=== PATIENT | male | born 1950 | race Caucasian/White ===

== ENCOUNTER 2016-12-23 22:53 | Emergency (ER) | payer MEDICARE, OTHER ==
[2016-12-23] MEDS ORDERED: Amoxicillin/Clavulanate K 875-125 MG Tab PO ONE (23:44)
--- NOTE | 2016-12-25 11:03 | ER ---
DATE SEEN: 12/23/2016 TIME SEEN: 2310 hours. HISTORY OF PRESENT ILLNESS: This 66-year-old smoker with hypertension, depression, and atrial fibrillation presents with onset of bleeding this evening approximately an hour ago in the left naris. He is not on anticoagulation. He takes an aspirin 81 mg daily. No diabetes, heart disease, bleeding disorder, asthma. He does have COPD. ADDITIONAL COMMENT: The patient had a previous CVA. PAST SURGICAL HISTORY: Right shoulder surgery. REVIEW OF SYSTEMS: Negative except for the noted nasal bleed. Denies fever, denies previous nasal fractures or nasal bleeds. PHYSICAL EXAMINATION: VITAL SIGNS: Blood pressure 146/130. Blood pressure repeat after Rapid Rhino in place 161/95, mean arterial pressure of 108. Oxygen saturation 94% and heart rate 87. The patient has on inspection, septal increased capillary bleed. No small arterial bleeding. The bleeding seemed to have stopped except for just a slight ooze. There is increased capillary to the right naris also. No bleed in the right naris. NECK: No bruits. HEART: S1, S2. S2 is greater than S1. No murmur. LUNGS: Clear to auscultation except for occasional rales at posterior bases, bilateral. Radial and ulnar pulses intact. Capillary refill intact. Clubbing noted in his fingers. ABDOMEN: Nontender. No guarding. No abdominal discomfort. Left naris bleed. The patient had a Rapid rhino placed 7.5 cm. The patient advised to keep this in. DIAGNOSES: 1. Left naris epistaxis, septal bleed. 2. Smoker. 3. Status post previous cerebrovascular accident. 4. Hypertension. 5. Aspirin therapy. PLAN: The patient to use Tylenol. Continue with baby aspirin daily. The nasal Rapid Rhino to be taken out in 3 days. Avoid sneezing. If markedly worse, return earlier. Augmentin 875 mg one b.i.d. 10 days. Use probiotic/yogurt on a daily basis, start taking tonight. /[id number] RHYS/DANNAL
== END 2016-12-24 00:01 | disposition home or self-care (01) ==
LOC: FB.ED 22:53
DX: R04.0 Epistaxis (principal); I10 Essential (primary) hypertension; F32.9 Major depressive disorder, single episode, unspecified; I48.91 Unspecified atrial fibrillation; J44.9 Chronic obstructive pulmonary disease, unspecified; F17.200 Nicotine dependence, unspecified, uncomplicated; Z86.73 Personal history of transient ischemic attack (TIA), and cerebral infarction without residual deficits; Z79.82 Long term (current) use of aspirin
CPT/HCPCS: 30903; 99282; A9270; 30901

== ENCOUNTER 2017-07-23 01:15 | Emergency (ER) | payer MEDICARE, OTHER ==
--- NOTE | 2017-07-23 02:05 | EDM.PDOC ---
ED HPI GENERAL MEDICAL PROBLEM - General Chief Complaint: Genitourinary Problem Stated Complaint: enlarged, painless R testicle Time Seen by Provider: 07/23/17 01:40 Source of Information: Reports: Patient, Old Records, RN History Limitations: Reports: No Limitations - History of Present Illness INITIAL COMMENTS - FREE TEXT/NARRATIVE: 66 yo male here with onset he says this past Saturday of R testicular swelling that he says developed with lifting of a 70# sack. There was no pain associated with this. He has been voiding normally and his bowels have functioned normally. He has not yet attempted to seek medical care for this until [facility]. What prompted him to come to the ER tonight was that he awake from sleep and noted that the unilateral swelling had further worsened, still without pain. Onset: Sudden Onset Date: 07/20/17 Duration: Day(s): Location: Reports: Pelvis (R testicle.) Quality: Reports: Other (painless) Improves with: Reports: None Worsens with: Reports: Other (time) Context: Reports: Other (onset reportedly with lifting this past Saturday.) Associated Symptoms: Reports: No Other Symptoms Treatments INFORMATICS PHARMACIST: Reports: Other (see below) (none) - Related Data Allergies Allergy/AdvReac Type Severity Reaction Status Date / Time No Known Allergies Allergy Verified 07/23/17 01:30 Home Meds: Home Meds Ascorbic Acid 1 tab PO DAILY 12/23/16 [History] Aspirin [Ecotrin] 2 tab PO DAILY 12/23/16 [History] Cholecalciferol (Vitamin D3) [Vitamin D] 2.5 tab PO DAILY 12/23/16 [History] DULoxetine [Cymbalta] 1 cap PO BEDTIME 12/23/16 [History] DULoxetine [Cymbalta] 1 cap PO DAILY 12/23/16 [History] Digoxin [Lanoxin] 1 tab PO DAILY 12/23/16 [History] Hydrochlorothiazide/Lisinopril [Lisinopril-HCTZ 20-25 MG] 1 tab PO DAILY [History] Verapamil HCl [Verapamil Sr] 2 tab PO DAILY 12/23/16 [History] Past Medical History Cardiovascular History: Reports: Hypertension, Other (See Below) Other Cardiovascular History: irregular heart beat as per patient. 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 - Past Surgical History Musculoskeletal Surgical History: Reports: Other (See Below) Other Musculoskeletal Surgeries/Procedures:: Right shoulder fusion. Social & Family History - Family History Family Medical History: Noncontributory - Tobacco Use Smoking Status *Q: Current Every Day Smoker Years of Tobacco use: 46 Packs/Tins Daily: 0.5 - Caffeine Use Caffeine Use: Reports: Coffee, Soda - Alcohol Use Days Per Week of Alcohol Use: 1 Number of Drinks Per Day: 2 Total Drinks Per Week: 2 - Recreational Drug Use Recreational Drug Use: No ED ROS GENERAL - Review of Systems Review Of Systems: See Below Constitutional: Reports: No Symptoms Respiratory: Reports: No Symptoms GI/Abdominal: Reports: No Symptoms : Reports: Other (R testicular swelling) Musculoskeletal: Reports: No Symptoms Skin: Reports: No Symptoms ED EXAM, RENAL/ - Physical Exam Exam: See Below Exam Limited By: No Limitations General Appearance: Alert, WD/WN, No Apparent Distress Respiratory/Chest: No Respiratory Distress Cardiovascular: Regular Rate, Rhythm GI/Abdominal: Normal Bowel Sounds, Soft, Non-Tender, No Distention. No: Hernia (Male) Exam: No Hernia, Scrotal Swelling, Testicular Mass (entire R testicle is markedly larger in size than the contralateral testicle. Both testes are descended in the scrotum without retraction. No scrotal hernias noted. ). No: Inguinal Lymphadenopathy, Scrotum Tenderness (L), Scrotum Tenderness (R), Suprapubic Fullness Back Exam: Normal Inspection. No: CVA Tenderness (R), CVA Tenderness (L) Extremities: Normal Inspection, Normal Range of Motion, Non-Tender, No Pedal Edema Neurological: Alert, Oriented, CN II-XII Intact, Normal Cognition Psychiatric: Normal Affect, Normal Mood Skin Exam: Warm, Dry, Intact, Normal Color, No Rash Lymphatic: No Adenopathy Course - Vital Signs Last Recorded V/S: Last Vital Signs Temp 36.3 C 07/23/17 01:28 Pulse 76 07/23/17 01:28 Resp 17 07/23/17 01:28 BP 106/69 07/23/17 01:28 Pulse Ox 98 07/23/17 01:28 Departure - Departure Time of Disposition: 02:08 Disposition: Home, Self-Care 01 Condition: Fair Clinical Impression: Hydrocele of testis - Discharge Information Referrals: Alec Godoy MD [Primary Care Provider] - Forms: ED Department Discharge Additional Instructions: Follow up as soon as possible with urology regarding your painless R testicular enlargement.
== END 2017-07-23 02:12 | disposition home or self-care (01) ==
LOC: FB.ED 01:15
DX: N43.3 Hydrocele, unspecified (principal); I10 Essential (primary) hypertension; F17.210 Nicotine dependence, cigarettes, uncomplicated; Z79.82 Long term (current) use of aspirin; Z79.899 Other long term (current) drug therapy
CPT/HCPCS: 99283

== ENCOUNTER 2018-05-01 11:40 | Inpatient (IN) | payer MEDICARE ==
[2018-05-01] MEDS ORDERED: Furosemide 40 MG/4 ML VIAL IVPUSH ONE ×2 (13:04→19:25)
[2018-05-01] MEDS ORDERED: Sodium Chloride 0.9% 10 ML Syringe FLUSH PRN (13:04)
[2018-05-01] MEDS ORDERED: Iopamidol 755 Mg/ML 75 ML Bottle IV ONE (13:24)
[2018-05-01] MEDS ORDERED: Pneumococcal Polyvalent-23 Vaccine 0.5 ML SDV IM ONE (13:37)
[2018-05-01] MEDS: Enoxaparin 40 MG/0.4 ML Syringe SUBCUT SCH (14:30)
[2018-05-01] MEDS: Nicotine 21 MG/24 Hr Patch TRDERM SCH (15:54)
--- NOTE | 2018-05-01 16:53 | PCM.CONS ---
H&P History of Present Illness - General Date of Service: 05/01/18 Admit Problem/Dx: Admission Diagnosis/Problem Admission Diagnosis/Problem Pleural effusion - History of Present Illness Initial Comments - Free Text/Narative: Pt admitted with a left sided pleural effusion and shortness of breath. This has been been a chronic issue for him over the past month. Seen in clinic 2 days ago and again today where he was admitted. He has a hx of chf as well as marked wt gain as well. He apparently had an effusion drained on that side in July of last year. This was thought to have been secondary to rib fractures. He denies any current chest discomfort with breathing. His last O2 sat was 96 % on room air. - Related Data Allergies/Adverse Reactions: Allergies Allergy/AdvReac Type Severity Reaction Status Date / Time No Known Allergies Allergy Verified 05/01/18 14:03 Home Medications: Home Meds DULoxetine [Cymbalta] 30 mg PO DAILY 12/23/16 [History] Aspirin [Halfprin] 81 mg PO DAILY 05/01/18 [History] Digoxin [Digox] 125 mcg PO DAILY 05/01/18 [History] Furosemide 40 mg PO 08,14 05/01/18 [History] Levofloxacin [Levaquin] 500 mg PO DAILY 05/01/18 [History] Lisinopril/Hydrochlorothiazide [Lisinopril-Hctz 20-25 mg Tab] 1 tab PO DAILY [History] Potassium Chloride 10 meq PO BIDMEALS 05/01/18 [History] Verapamil [Verapamil ER] 480 mg PO DAILY 05/01/18 [History] traZODone HCl [Trazodone HCl] 25 mg PO BEDTIME PRN 05/01/18 [History] Past Medical History HEENT History: Reports: Cataract Cardiovascular History: Reports: Heart Failure, Hypertension, Other (See Below) Other Cardiovascular History: irregular heart beat as per patient. 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 Psychiatric History: Reports: Depression Endocrine/Metabolic History: Reports: Obesity/BMI 30+ - Infectious Disease History Infectious Disease History: Reports: Rheumatic Fever - Past Surgical History Musculoskeletal Surgical History: Reports: Other (See Below) Other Musculoskeletal Surgeries/Procedures:: Right shoulder fusion with stimulator Social & Family History - Family History Family Medical History: Noncontributory - Tobacco Use Smoking Status *Q: Current Every Day Smoker Years of Tobacco use: 30 Packs/Tins Daily: 0.5 - Caffeine Use Caffeine Use: Reports: Coffee - Recreational Drug Use Recreational Drug Use: No H&P Review of Systems - Review of Systems: Review Of Systems: See Below General: Denies: Fever, Chills HEENT: Reports: No Symptoms Pulmonary: Reports: Shortness of Breath. Denies: Pleuritic Chest Pain Cardiovascular: Reports: Edema Skin: Reports: No Symptoms Exam - Exam Exam: See Below - Vital Signs Vital Signs: Last Vital Signs Temp 97.6 F 05/01/18 15:50 Pulse 70 05/01/18 15:50 Resp 18 05/01/18 15:50 BP 116/79 05/01/18 15:50 Pulse Ox 96 05/01/18 15:50 Weight: 113.897 kg - Exam Quality Assessment: No: Supplemental Oxygen General: Alert, Oriented, Cooperative, Other (sleeping when entered the room breathign did not appear to be labored. ) Lungs: Clear to Auscultation, Decreased Breath Sounds Cardiovascular: Irregular Rhythm Extremities: Pedal Edema - Patient Data Lab Results Last 24 hrs: Laboratory Results - last 24 hr 05/01/18 05/01/18 05/01/18 Range/Units 13:44 13:44 13:44 WBC 8.3 (4.5-12.0) X10-3/uL RBC 4.87 (4.30-5.75) x10(6)uL Hgb 14.1 (11.5-15.5) g/dL Hct 44.1 (30.0-51.3) % MCV 90.6 (80-96) fL MCH 29.0 (27.7-33.6) pg MCHC 32.0 L (32.2-35.4) g/dL RDW 15.4 (11.5-15.5) % Plt Count 235 (125-369) X10(3)uL MPV 8.1 (7.4-10.4) fL Neut % (Auto) 72.5 (46-82) % Lymph % (Auto) 15.5 (13-37) % [place] % (Auto) 10.5 (4-12) % Eos % (Auto) 1 (1.0-5.0) % Baso % (Auto) 0 (0-2) % Neut # (Auto) 6.0 (1.6-8.3) # Lymph # (Auto) 1.3 (0.6-5.0) # [place] # (Auto) 0.9 (0.0-1.3) # Eos # (Auto) 0.1 (0.0-0.8) # Baso # (Auto) 0.0 (0.0-0.2) # Sodium 141 (135-145) mmol/L Potassium 3.4 L (3.5-5.3) mmol/L Chloride 102 (100-110) mmol/L Carbon Dioxide 31 (21-32) mmol/L BUN 18 (7-18) mg/dL Creatinine 1.5 H (0.70-1.30) mg/dL Est Cr Clr Drug Dosing 53.17 mL/min Estimated GFR (MDRD) 47 L (>60) BUN/Creatinine Ratio 12.0 (9-20) Glucose 98 (80-116) mg/dL Calcium 9.7 (8.6-10.2) mg/dL Total Bilirubin 1.6 H (0.1-1.3) mg/dL AST 25 (5-25) IU/L ALT 24 (12-36) U/L Alkaline Phosphatase 113 H (56-112) IU/L Troponin I < 0.017 L (<0.017-0.056) ng/mL Total Protein 6.9 (6.0-8.0) g/dL Albumin 3.0 L (3.2-4.6) g/dL Globulin 3.9 g/dL Albumin/Globulin Ratio 0.8 Result Diagrams: 05/01/18 13:44 05/01/18 13:44 Imaging Impressions Last 24 hrs: left sided pleural effusion. Consult PN Assessment/Plan Procedures: Procedures CONTROL OF NOSEBLEED (12/23/16) EMERGENCY DEPT VISIT (07/23/17) EMERGENCY DEPT VISIT (12/23/16) (1) Pleural effusion on left SNOMED Code(s): 34944135 Code(s): J90 - PLEURAL EFFUSION, NOT ELSEWHERE CLASSIFIED Current Visit: Yes Problem List Initiated/Reviewed/Updated: Yes My Orders Last 24 Hours: thoracentesis may be of benefit. will set up for tomorrow to be done with US guidance at about 0930. procedure and risks explained to the patient to include bleeding, infection, injury to the lung. he expressed understanding and asks us to proceed.
[2018-05-01] MEDS ORDERED: traZODone 50 MG Tab PO PRN (19:36)
--- NOTE | 2018-05-02 09:10 | CT ---
INDICATION: Pleural effusion etiology, one half pack per day times 40 years of smoking, short of breath and cough. CT CHEST WITH CONTRAST: Spiral 3.75 mm axial sections were obtained through the chest with 75 mL Isovue 370 at 2 mL/second, with sagittal and coronal reconstructions, 05/01/18, and compared with chest x-ray dated 04/30/18. Total exam DLP = 950.93 mGy-cm. A small amount of fluid appears to be present along the subdiaphragmatic area, dome of the liver laterally and posteriorly, etiology indeterminate. No specific liver abnormality was identified, except for what appears to be a benign cystic structure in the right lobe, seen on axial image #69. Arterial calcifications are noted at the bryce hepatis, superior mesenteric artery, and aorta, as well as at the origins of the renal arteries. Probable cyst off the mid pole anteriorly of the left kidney is noted of less than 3 cm. At the left lower lung field, extending into the upper lung field posterolaterally, there is a loculated pleural effusion with adjacent pleural thickening along the contour of the lung and also the contour of the hemithorax. The calcified pleural thickening is likely on the basis of asbestosis, although other etiology cannot be excluded. There is an area of relative thickening towards the base of the lung, which is somewhat suspicious for a process such as mesothelioma. This should be correlated clinically. Diagnostic thoracentesis on the left is recommended for further evaluation of this finding. A minimal pleural effusion is also noted on the right without a definite active infiltrate. Pericardial effusion is noted. No cardiomegaly was seen. Coronary artery calcifications are fairly extensive. Lymphadenopathy is noted in the mediastinum with one particularly abnormal lymph node noted just above the david anteriorly, measuring approximately 25 mm. Malignancy would be a consideration with this appearance. There is also calcification noted in the arch of the aorta and brachiocephalic vessels. IMPRESSION: 1. Large loculated pleural effusion on the left. Diagnostic thoracentesis is recommended for further evaluation, as mesothelioma cannot be excluded with what appears to be thickened pleura with calcification, raising question of asbestosis. 2. Pericardial effusion of small size vs thickening. 3. ASHD/ASD. 4. Small right pleural effusion. 5. Small amount of fluid suggested along the border of the diaphragm and the dome of the liver posterolaterally. 6. Small probable cysts of benign origin right lobe of the liver and left kidney. Report was called to Dr. Godoy at 1555 hours on 05/01/18. [facility]
--- NOTE | 2018-05-02 10:12 | PCM.OPNOTE ---
- General Post-Op/Procedure Note Date of Surgery/Procedure: 05/02/18 Operative Procedure(s): left sided thoracentesis Findings: 1200 ml of bloody fluid obtained Pre Op Diagnosis: left sided plueral effusion Post-Op Diagnosis: Same Anesthesia Technique: Local Primary Surgeon: Armando Soto Complications: None Condition: Good Free Text/Narrative:: Intake & Output 05/01/18 05/02/18 05/02/18 22:59 06:59 14:59 Intake Total 580 200 Output Total 2104 1693 Balance -1243 -7209 see dictation
[2018-05-02] MEDS ORDERED: Verapamil 240 MG Tab.ER PO ONE (10:20)
[2018-05-02] MEDS: Potassium Chloride 10 MEQ Tab.ER PO SCH ×2 (10:25→17:31)
[2018-05-02] MEDS: Hydrochlorothiazide/Lisinopril 25-20 MG Tab PO SCH (10:26)
[2018-05-02] MEDS: Digoxin 125 MCG Tab PO SCH (10:26)
[2018-05-02] MEDS: DULoxetine 30 MG Cap PO SCH (10:26)
[2018-05-02] MEDS: Aspirin 81 MG Tab.EC PO SCH (10:26)
--- NOTE | 2018-05-02 10:26 | PCM.SN ---
- Free Text/Narrative Note: Post procedure cxr: Lung is expanded. There is still some fluid in the base. Atelectasis is noted. recommend IS to help expand the lung.
[2018-05-02] MEDS: Verapamil 240 MG Tab.ER PO SCH ×2 (10:28→16:15)
--- NOTE | 2018-05-02 10:55 | OR ---
DATE OF OPERATION: 05/02/2018 SURGEON: Armando Soto MD PROCEDURE PERFORMED: Left-sided thoracentesis. PREOPERATIVE DIAGNOSIS: Left-sided pleural effusion. POSTOPERATIVE DIAGNOSIS: Left-sided pleural effusion. INDICATIONS FOR PROCEDURE: This is a 67-year-old white male who was admitted yesterday with what appeared to be an exacerbation of congestive heart failure including shortness of breath. He had a history of a traumatic effusion that was drained several small months ago. On chest x-ray, he was noted to have a left-sided pleural effusion that had returned and was appeared to be identical to the fluid that had been drained before. Thoracentesis was requested, offered, and accepted by the patient. DESCRIPTION OF OPERATION: After ultrasound was used to demonstrate the ideal position of the loculated fluid, the patient was prepped and draped in usual sterile manner. A grand total of 4 mL of 1% lidocaine was used to infiltrate our track. A stab incision was then made through the skin which was approximately 3 cm lateral to the posterior axillary line. Using the C-Trak pattern, the thoracentesis catheter and introducer needle were then introduced into the pleural cavity, and on aspiration of the bloody fluid, the catheter was advanced, and then introducer was withdrawn. Grand total of approximately 1200 mL of bloody fluid was obtained. This was not sent for pathologic examination. The patient noted some coughing towards the end of the procedure. The catheter then was removed, and a Band-Aid was applied. The patient tolerated the procedure well. Postoperative chest x-ray was obtained. /[id number] SILVINA/SHAKIRA
--- NOTE | 2018-05-02 12:00 | CR ---
INDICATION: Post thoracentesis. CHEST: An AP upright portable view of the chest was obtained post thoracentesis , 1,200 mL of fluid removed from the left chest, and revealed some residual pleural thickening at the lung base and laterally on the left. There is some parenchymal change, which may represent subsegmental atelectasis. The heart appeared enlarged. The aorta was tortuous with calcification in the arch. Right lung and pleural space were unremarkable. IMPRESSION: No evidence of post thoracentesis complication is identified on the left. MTDD
--- NOTE | 2018-05-02 12:59 | PN ---
DATE SEEN: 05/02/2018 SUBJECTIVE: Lester Mayfield is a 67-year-old male, admitted with left large pleural effusion. 1200 mL removed today by Dr. Soot. Feeling better. Post thoracentesis x-ray stable. Weight is down markedly. Echocardiogram has been performed, outcome uncertain. PHYSICAL EXAMINATION: VITAL SIGNS: Stable. NECK: Benign. Thyroid small. CHEST: Better air exchange, left lung field. HEART: Occasional ectopy. ABDOMEN: Benign. ASSESSMENT: Large pleural effusion, origin uncertain, may be heart failure otherwise. PLAN: Medications, care and treatment appropriate, intervention and treatment plan. /[id number] MIRYAM/SHAKIRA
--- NOTE | 2018-05-02 13:48 | HP ---
ADMISSION DATE: 05/01/2018 HISTORY OF PRESENT ILLNESS: Alfredito Lassiter is a 67-year-old male, who is admitted to [facility] through [place] [facility]. Complicated shortness of breath, increasing weight, history of congestive heart failure, and compounding issue of a large left pleural effusion. Clinical concerns raised, was admitted to the hospital, placed on IV fluids, intervention and care. Thoracentesis is planned with consultation with Dr. Soto. MEDICATIONS: Present daily medications include: 1. Furosemide 40 mg b.i.d. 2. Levofloxacin. 3. Aspirin. 4. Digoxin 0.125 one p.o. daily atrial fibrillation. 5. Cymbalta 30 mg one p.o. daily. 6. Lisinopril-hydrochlorothiazide 20/12.5. 7. Potassium 10 mEq daily. 8. Trazodone 50 at bedtime. 9. Verapamil XL 240 one p.o. daily. ALLERGIES: No known medication, environmental, or latex allergies. PAST MEDICAL HISTORY: Significant for previous right orchiectomy, right shoulder rotator cuff surgery, right elbow surgery. Chronic illnesses include hypertension, congestive heart failure, atrial fibrillation, and insomnia. SOCIAL HISTORY: Lives alone, partner on board. Long-term smoker. No alcohol consumption. No illicit drug use. FAMILY HISTORY: Noncontributory. REVIEW OF SYSTEMS: CONSTITUTIONAL: Feeling punk. EYES: Sees well. EARS: Difficulty in crowds. OROPHARYNX: Intact dentition. RESPIRATORY: Marked shortness of breath. CARDIOVASCULAR: Shortness of breath, but no chest pain. GI: Regular predictable stools. : Voiding pattern okay. Nocturia x1. ORTHOPEDIC: Generalized joint complaints. PHYSICAL EXAMINATION: VITAL SIGNS: Stable. 109.8 kg, 124/88, O2 saturation 93%, 126/50. GENERAL: Appears comfortable. Gives a good history. HEENT: Reveal funduscopic benign. Bright TMs. Clear nasal discharge. Mouth and oropharynx clear. NECK: Benign. CHEST: Clear in all lung tomlin. No adventitious sounds. HEART: Ectopy present, no significant murmur. ABDOMEN: Benign. : Absent right testicle, surgical scar well healed. Left testicle unremarkable. Uncircumcised. No hernias. RECTAL: Declined. EXTREMITIES: Well perfused. NEUROMUSCULAR: Intact. LABORATORY STUDIES: White count 8300, hemoglobin 14.1, normal. Chemistry: Potassium 3.4, creatinine 1.5, markedly elevated BMP. TSH 1.89. ASSESSMENT: Left pleural effusion, origin undetermined. PLAN: Thoracentesis planned for today, complementary care and well being. /[id number] MIRYAM/SHAKIRA
[2018-05-02] MEDS: Enoxaparin 40 MG/0.4 ML Syringe SUBCUT SCH (14:52)
[2018-05-02] MEDS: Nicotine 21 MG/24 Hr Patch TRDERM SCH (15:53)
[2018-05-03] MEDS: Potassium Chloride 10 MEQ Tab.ER PO SCH (08:39)
[2018-05-03] MEDS: Aspirin 81 MG Tab.EC PO SCH (08:39)
[2018-05-03] MEDS: DULoxetine 30 MG Cap PO SCH (08:39)
[2018-05-03] MEDS: Hydrochlorothiazide/Lisinopril 25-20 MG Tab PO SCH (08:40)
[2018-05-03] MEDS: Digoxin 125 MCG Tab PO SCH (08:40)
[2018-05-03] MEDS ORDERED: Verapamil 240 MG Cap.ER PO SCH (09:00)
[2018-05-03] MEDS ORDERED: Verapamil 120 MG Tab.ER PO SCH (09:00)
--- NOTE | 2018-05-05 08:24 | DISCH ---
DISCHARGE DATE: 05/03/2018 DISCHARGE DIAGNOSIS: Left pleural effusion, symptomatic. HOSPITAL COURSE: Lester Mayfield is a 67-year-old male, admitted to [facility]. Presented with shortness of breath, complicated cough, was found to have a large pleural effusion and congestive heart failure, of concern. DIAGNOSTIC STUDIES: Chest x-ray revealed a large pleural effusion. CBC unremarkable x2. Electrolytes were stable. Potassium 3.4 x2. Creatinine 1.5. GFR of 47, 43. BNP 3,170. Medications were reviewed. Was seen in consultation by Dr. Soto, thoracentesis revealed 1200 mL of nonbloody material. No chemical evaluation was performed. [place] better. Ambulation, shortness of breath, and breathing were improved. Origin of clinical concern. Echocardiogram performed, results not available. The patient was discharged home. Follow up in one week's time with Dr. Payne. Close observation of weight, intervention, care and treatment, proceed accordingly. DISCHARGE PHYSICAL EXAMINATION: VITAL SIGNS: 109.225 kg, pulse 77, 118/75, and 97%. GENERAL: Appears comfortable. HEENT: Conjunctivae clear. Bright tympanic membranes. Clear nasal discharge. Mouth and oropharynx clear. NECK: Benign. CHEST: Better air exchange throughout all lung tomlin, particularly left side. HEART: Distant heart sounds. Occasional ectopy. No significant murmur. ABDOMEN: Rotund. EXTREMITIES: Perfused. Minimal edema. 30-minute discharge, treatment plan and care. /[id number] /SHAKIRA
== END 2018-05-03 11:50 | disposition home or self-care (01) | DRG 188 ==
LOC: FB.MS 11:44
PROVIDERS: ADMIT Family Medicine; ATTEND Family Medicine
PROC: 0W9B3ZZ Drainage of Left Pleural Cavity, Percutaneous Approach (ICD-10-PCS; principal; 2018-05-02)
DX: J90 Pleural effusion, not elsewhere classified (principal); I11.0 Hypertensive heart disease with heart failure; I50.9 Heart failure, unspecified; I48.91 Unspecified atrial fibrillation; F17.210 Nicotine dependence, cigarettes, uncomplicated; G47.00 Insomnia, unspecified; F32.9 Major depressive disorder, single episode, unspecified; Z86.73 Personal history of transient ischemic attack (TIA), and cerebral infarction without residual deficits; Z98.1 Arthrodesis status; Z90.79 Acquired absence of other genital organ(s)
CPT/HCPCS: 36415; 71045; 71260; 80048; 80053; 83880; 84443; 84484; 85025; 93005; 93306; 94150; A9270-GY; J1650; J1940; Q9967

== ENCOUNTER 2018-06-13 10:22 | Emergency (ER) | payer MEDICARE ==
--- NOTE | 2018-06-13 10:34 | EDM.PDOC ---
ED HPI GENERAL MEDICAL PROBLEM - General Chief Complaint: Cardiovascular Problem Stated Complaint: DIZZY Time Seen by Provider: 06/13/18 10:22 Source of Information: Reports: Patient, Family History Limitations: Reports: Altered Mental Status (lethgargic) - History of Present Illness INITIAL COMMENTS - FREE TEXT/NARRATIVE: 67 y.o.w.m came to the ED with his GF, unable to ambulate because of weakness, Pt is extremely tired this am. Pt was doing fine yesterday, was doing garden work.. Pt is too week to ambulate, denies chest pain. No Trauma, No N/V/D or any other acute med issues. BP 155/103 Pulse ox 93% on RA RR 20 pulse 93 Temp 36.9 Onset Date: 06/13/18 Onset Time: 07:00 Duration: Hour(s): Location: Reports: Generalized (unable to walk) Quality: Reports: Other (denies pain) Severity: Moderate Improves with: Reports: Rest Worsens with: Reports: Movement Context: Reports: Other Associated Symptoms: Reports: Confusion, Weakness - Related Data Allergies Allergy/AdvReac Type Severity Reaction Status Date / Time No Known Allergies Allergy Verified 06/13/18 10:26 Home Meds: Home Meds . [Unable to Verify Home Med List] 06/13/18 [History] Past Medical History HEENT History: Reports: Cataract Cardiovascular History: Reports: Heart Failure, Hypertension, Other (See Below) Other Cardiovascular History: irregular heart beat as per patient. 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 Psychiatric History: Reports: Depression Endocrine/Metabolic History: Reports: Obesity/BMI 30+ - Infectious Disease History Infectious Disease History: Reports: Rheumatic Fever - Past Surgical History Musculoskeletal Surgical History: Reports: Other (See Below) Other Musculoskeletal Surgeries/Procedures:: Right shoulder fusion with stimulator Social & Family History - Family History Family Medical History: Noncontributory - Tobacco Use Smoking Status *Q: Current Every Day Smoker Years of Tobacco use: 50 Packs/Tins Daily: 0.5 - Caffeine Use Caffeine Use: Reports: Coffee, Soda - Recreational Drug Use Recreational Drug Use: No ED ROS GENERAL - Review of Systems Review Of Systems: Unable To Obtain (due to lethargy) ED EXAM, GENERAL - Physical Exam Exam: See Below Exam Limited By: Altered Mental Status General Appearance: Alert, WD/WN, Mild Distress Eye Exam: Bilateral Eye: Normal Inspection Ears: Normal External Exam Ear Exam: Bilateral Ear: Auricle Normal Nose: Normal Inspection, Normal Mucosa, No Blood Throat/Mouth: Normal Inspection, Normal Lips Head: Atraumatic, Normocephalic Neck: Normal Inspection, Supple, Non-Tender, Full Range of Motion Respiratory/Chest: No Respiratory Distress, Lungs Clear, Normal Breath Sounds Cardiovascular: Normal Peripheral Pulses, Regular Rate, Rhythm, No Edema, No Gallop, No JVD, No Murmur, No Rub GI/Abdominal: Normal Bowel Sounds, Soft, Non-Tender, No Organomegaly, No Distention, No Abnormal Bruit, No Mass, Pelvis Stable (Male) Exam: Deferred Rectal (Males) Exam: Deferred Back Exam: Normal Inspection, Full Range of Motion Extremities: Normal Inspection, Normal Range of Motion, Non-Tender, No Pedal Edema, Normal Capillary Refill Psychiatric: Depressed Mood Skin Exam: Warm, Dry, Intact, Normal Color, No Rash Lymphatic: No Adenopathy EKG INTERPRETATION EKG Date: 06/13/18 Time: 10:55 Rhythm: NSR Rate (Beats/Min): 87 [place]: RAD-Right [place] Deviation P-Wave: Present QRS: Normal ST-T: Normal QT: Prolonged Comparison: NA - No Prior EKG Course - Vital Signs Text/Narrative:: 67 y.o.w.m came to the ED with his GF, unable to ambulate because of weakness, Pt is extremely tired this am. Pt was doing fine yesterday, was doing garden work.. Pt is too week to ambulate, denies chest pain. No Trauma, No N/V/D or any other acute med issues. BP 155/103 Pulse ox 93% on RA RR 20 pulse 93 Temp 36.9 PE: WN W M lethargic, too weak to ambulate Imaging: CT Head: NAD as per RAD CXR: Labs: CBC, BMP Nl exept Troponin: 0.08 second Troponin: 0.101 Impression: NSTEMI, Lethargy cardiac risk factor: Smoker Tx: ASA, Heparin drip with bolus 11.45 Consultation: Dr. Godoy, Hospitalist: Send to [facility] 12.44 pm Consultation: Dr. Garrett, Hospitalist, [facility]: Accepted the pt for transfer Reexam: Pt inprogved, was ambulating fine in the ED Plan: Transfer to [facility], Family agree Last Recorded V/S: Last Vital Signs Temp 36.5 C 06/13/18 13:33 Pulse 78 06/13/18 13:33 Resp 18 06/13/18 10:40 BP 132/101 H 06/13/18 13:33 Pulse Ox 100 06/13/18 13:33 - Orders/Labs/Meds Labs: Laboratory Tests 06/13/18 06/13/18 06/13/18 Range/Units 10:50 10:50 10:50 WBC 7.9 (4.5-12.0) X10-3/uL RBC 5.24 (4.30-5.75) x10(6)uL Hgb 15.5 (13.5-17.8) g/dL Hct 46.7 (30.0-51.3) % MCV 89.2 (80-96) fL MCH 29.5 (27.7-33.6) pg MCHC 33.1 (32.2-35.4) g/dL RDW 13.7 (11.5-15.5) % Plt Count 261 (125-369) X10(3)uL MPV 7.3 L (7.4-10.4) fL Neut % (Auto) 76.7 (46-82) % Lymph % (Auto) 13.2 (13-37) % [place]ake % (Auto) 7.9 (4-12) % Eos % (Auto) 2 (1.0-5.0) % Baso % (Auto) 1 (0-2) % Neut # (Auto) 6.2 (1.6-8.3) # Lymph # (Auto) 1.0 (0.6-5.0) # Leake # (Auto) 0.6 (0.0-1.3) # Eos # (Auto) 0.1 (0.0-0.8) # Baso # (Auto) 0.0 (0.0-0.2) # PT 10.6 (8.7-11.1) INR 1.09 (0.89-1.13) Sodium 138 (135-145) mmol/L Potassium 3.8 (3.5-5.3) mmol/L Chloride 102 (100-110) mmol/L Carbon Dioxide 27 (21-32) mmol/L BUN 16 (7-18) mg/dL Creatinine 1.2 (0.70-1.30) mg/dL Est Cr Clr Drug Dosing 68.43 mL/min Estimated GFR (MDRD) > 60 (>60) BUN/Creatinine Ratio 13.3 (9-20) Glucose 112 (80-116) mg/dL Lactic Acid (0.4-2.2) mmol/L Calcium 8.6 (8.6-10.2) mg/dL Magnesium (1.8-2.5) mg/dL Troponin I (<0.017-0.056) ng/mL Urine Color (YELLOW) Urine Appearance (CLEAR) Urine pH (5.0-6.5) Ur Specific [place] (1.010-1.025) Urine Protein (NEGATIVE) mg/dL Urine Glucose (UA) (NORMAL) mg/dL Urine Ketones (NEGATIVE) mg/dL Urine Occult Blood (NEGATIVE) Urine Nitrite (NEGATIVE) Urine Bilirubin (NEGATIVE) Urine Urobilinogen (NEGATIVE) mg/dL Ur Leukocyte Esterase (NEGATIVE) Urine RBC (0-5) Urine WBC (0-5) Ur Squamous Epith Cells (NS,R,O) Urine Bacteria (NS) 06/13/18 06/13/18 06/13/18 Range/Units 10:50 10:50 10:50 WBC (4.5-12.0) X10-3/uL RBC (4.30-5.75) x10(6)uL Hgb (13.5-17.8) g/dL Hct (30.0-51.3) % MCV (80-96) fL MCH (27.7-33.6) pg MCHC (32.2-35.4) g/dL RDW (11.5-15.5) % Plt Count (125-369) X10(3)uL MPV (7.4-10.4) fL Neut % (Auto) (46-82) % Lymph % (Auto) (13-37) % [place]ake % (Auto) (4-12) % Eos % (Auto) (1.0-5.0) % Baso % (Auto) (0-2) % Neut # (Auto) (1.6-8.3) # Lymph # (Auto) (0.6-5.0) # Leake # (Auto) (0.0-1.3) # Eos # (Auto) (0.0-0.8) # Baso # (Auto) (0.0-0.2) # PT (8.7-11.1) INR (0.89-1.13) Sodium (135-145) mmol/L Potassium (3.5-5.3) mmol/L Chloride (100-110) mmol/L Carbon Dioxide (21-32) mmol/L BUN (7-18) mg/dL Creatinine (0.70-1.30) mg/dL Est Cr Clr Drug Dosing mL/min Estimated GFR (MDRD) (>60) BUN/Creatinine Ratio (9-20) Glucose (80-116) mg/dL Lactic Acid 1.3 (0.4-2.2) mmol/L Calcium (8.6-10.2) mg/dL Magnesium 1.8 (1.8-2.5) mg/dL Troponin I 0.087 H* (<0.017-0.056) ng/mL Urine Color (YELLOW) Urine Appearance (CLEAR) Urine pH (5.0-6.5) Ur Specific [place] (1.010-1.025) Urine Protein (NEGATIVE) mg/dL Urine Glucose (UA) (NORMAL) mg/dL Urine Ketones (NEGATIVE) mg/dL Urine Occult Blood (NEGATIVE) Urine Nitrite (NEGATIVE) Urine Bilirubin (NEGATIVE) Urine Urobilinogen (NEGATIVE) mg/dL Ur Leukocyte Esterase (NEGATIVE) Urine RBC (0-5) Urine WBC (0-5) Ur Squamous Epith Cells (NS,R,O) Urine Bacteria (NS) 06/13/18 06/13/18 Range/Units 11:45 12:54 WBC (4.5-12.0) X10-3/uL RBC (4.30-5.75) x10(6)uL Hgb (13.5-17.8) g/dL Hct (30.0-51.3) % MCV (80-96) fL MCH (27.7-33.6) pg MCHC (32.2-35.4) g/dL RDW (11.5-15.5) % Plt Count (125-369) X10(3)uL MPV (7.4-10.4) fL Neut % (Auto) (46-82) % Lymph % (Auto) (13-37) % [place] % (Auto) (4-12) % Eos % (Auto) (1.0-5.0) % Baso % (Auto) (0-2) % Neut # (Auto) (1.6-8.3) # Lymph # (Auto) (0.6-5.0) # [place]ake # (Auto) (0.0-1.3) # Eos # (Auto) (0.0-0.8) # Baso # (Auto) (0.0-0.2) # PT (8.7-11.1) INR (0.89-1.13) Sodium (135-145) mmol/L Potassium (3.5-5.3) mmol/L Chloride (100-110) mmol/L Carbon Dioxide (21-32) mmol/L BUN (7-18) mg/dL Creatinine (0.70-1.30) mg/dL Est Cr Clr Drug Dosing mL/min Estimated GFR (MDRD) (>60) BUN/Creatinine Ratio (9-20) Glucose (80-116) mg/dL Lactic Acid (0.4-2.2) mmol/L Calcium (8.6-10.2) mg/dL Magnesium (1.8-2.5) mg/dL Troponin I 0.101 H* (<0.017-0.056) ng/mL Urine Color Yellow (YELLOW) Urine Appearance Slightly cloudy (CLEAR) Urine pH 5.0 (5.0-6.5) Ur Specific [place] 1.020 (1.010-1.025) Urine Protein 30 H (NEGATIVE) mg/dL Urine Glucose (UA) Normal (NORMAL) mg/dL Urine Ketones Negative (NEGATIVE) mg/dL Urine Occult Blood Moderate H (NEGATIVE) Urine Nitrite Negative (NEGATIVE) Urine Bilirubin Negative (NEGATIVE) Urine Urobilinogen 1 H (NEGATIVE) mg/dL Ur Leukocyte Esterase Negative (NEGATIVE) Urine RBC 5-10 H (0-5) Urine WBC 0-5 (0-5) Ur Squamous Epith Cells Few H (NS,R,O) Urine Bacteria Few H (NS) Meds: Medications Discontinued Medications Generic Name Dose Route Start Last Admin Trade Name Freq PRN Reason Stop Dose Admin Aspirin 324 mg 06/13/18 12:41 06/13/18 12:53 Aspirin PO 06/13/18 12:42 324 mg ONETIME ONE Administration Heparin Sodium (Porcine) 4,000 units 06/13/18 13:00 06/13/18 13:29 Heparin Sodium IV 06/13/18 13:01 4,000 units ONETIME ONE Administration Heparin Sodium/Sodium Chloride 25,000 units in 500 mls @ 20 mls/hr 06/13/18 12 :45 06/13/18 13:31 Heparin 25,000 Units In 1/2 Ns 500 Ml IV 20 mls/hr TITRATE MAEVE 20 mls/hr Administration Protocol Nicotine 21 mg 06/13/18 12:52 06/13/18 13:10 Habitrol TRDERM 06/13/18 12:53 21 mg ONETIME ONE Administration Sodium Chloride 10 ml 06/13/18 12:55 06/13/18 13:16 Saline Flush FLUSH 10 ml ASDIRECTED PRN Administration Keep Vein Open Departure - Departure Time of Disposition: 12:00 Disposition: DC/Tfer to Acute Hospital 02 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
--- NOTE | 2018-06-13 12:02 | CT ---
INDICATION: Lethargy, confusion, leaning to left, slurred speech, history of previous CVA in 1990. CT HEAD WITHOUT CONTRAST: Spiral examination of the brain axially with sagittal and coronal reconstructions was obtained 06/13/18 - no comparisons are available. Total exam DLP = 1,348.07 mGy-cm. A small to moderate sized retention cyst is noted in the right maxillary antrum with a very large retention cyst in the left maxillary antrum. The visualized paranasal sinuses were otherwise well-aerated. There is evidence of previous surgery in the frontal lobe. No other significant cranial findings. Mastoid air cells appear to be well-aerated. Calcifications are noted in the vertebral, basilar, and internal carotid arteries. Sulci are somewhat prominent in the frontoparietal area, suggesting cortical atrophy. There is no shift of midline structures. Lateral ventricles are slightly asymmetrical with the left being somewhat prominent. This may represent a normal variant and possibly a degree of central atrophy. In the anterior limb of the left external capsule, there is an area of decreased density that is not well-defined and could represent a lacunar infarct. In addition, a low density abnormality in the basal ganglia anteriorly on the left is compatible with a lacunar infarct. Multiple low density abnormalities are indistinct and scattered in the white matter, much more prominent in the frontoparietal area and are compatible with microvascular disease. No bleeding site or hematoma was identified. Although a definite acute abnormality is not seen, it is difficult to entirely exclude areas of ischemia in the left basal ganglia and anterior limb left external capsule, as mentioned above, versus established lacunar infarcts - no comparisons were available to make that determination. MRI may be helpful, depending upon clinical course. The orbits appear to be intact. IMPRESSION: 1. Cerebrovascular disease with no definite acute intracranial abnormality; however, areas of focal ischemia cannot be entirely excluded, as mentioned in the external capsule and basal ganglia on the left. 2. Mild to moderate microvascular disease, more prominent on the right. 3. Large retention cysts left maxillary antrum with a small to moderate sized retention cyst right maxillary antrum. 4. Asymmetrical lateral ventricles, minimally prominent on the right for age, somewhat prominent for age on the left, raising question of some atrophy versus anatomic variant. 5. Defect in the skull compatible with previous surgery is noted. No evidence of a shunt was seen. Report was called to Dr. Vinson at 1134 hours on 06/13/18. MTDD
[2018-06-13] MEDS ORDERED: Aspirin 81 MG Tab.Chew PO ONE (12:41)
[2018-06-13] MEDS ORDERED: Heparin Sodium/0.45% NaCl 25,000 UNITS/500 ML BAG IV SCH (12:45)
[2018-06-13] MEDS ORDERED: Nicotine 21 MG/24 Hr Patch TRDERM ONE (12:52)
[2018-06-13] MEDS ORDERED: Sodium Chloride 0.9% 10 ML Syringe FLUSH PRN (12:55)
[2018-06-13] MEDS ORDERED: Heparin Sodium 5,000 Units/ML Vial IV ONE (13:00)
--- NOTE | 2018-06-13 15:19 | CR ---
INDICATION: Elevated troponin. CHEST: PA and lateral views of the chest were obtained 06/13/18 and were compared with 05/02/18 and 04/30/18, revealing recurrence of a large left loculating pleural effusion, which appears to be loculating posteriorly. A degree of atelectasis or infiltrate cannot be excluded on the left. The right side appeared unremarkable, as to pneumonia or pleuritis; however, there is hyperaeration with flattening of diaphragm leaves and prominent AP diameter, all compatible with COPD. Post ORIF changes are noted at the right shoulder - humerus. The heart did not appear grossly enlarged. The aorta is tortuous with calcification minimally in the arch area. IMPRESSION: 1. Compared with the most recent study, there is re-accumulation of pleural fluid on the left. Parenchymal changes cannot be excluded in that area. 2. COPD. 3. ASD aorta. 4. No evidence of pneumothorax. MTDD
== END 2018-06-13 13:42 ==
LOC: FB.ED 10:22
DX: I21.4 Non-ST elevation (NSTEMI) myocardial infarction (principal); I11.0 Hypertensive heart disease with heart failure; I50.9 Heart failure, unspecified; F17.210 Nicotine dependence, cigarettes, uncomplicated; Z86.73 Personal history of transient ischemic attack (TIA), and cerebral infarction without residual deficits
CPT/HCPCS: 36415; 70450; 71046; 80048; 81001; 83605; 83735; 84484; 85025; 85610; 93005; 96374; 96375; 99285; A9270; J1644